=== PATIENT | female | born 1980 | race Caucasian/White ===

== ENCOUNTER 2018-12-30 15:07 | Emergency (ER) | payer MEDICAID ==
[~2018-12-30] VITALS: Ht 170.2 cm; Wt 80.0 kg
--- NOTE | 2018-12-30 15:14 | NUR ---
Pt ambulates to room from lobby with steady gait and balance. NADN. No obvious defecits observed.
[2018-12-30] MEDS ORDERED: ALBUTEROL/IPRATROPIUM 2.5MG/0.5MG, 3 ML ONE ×2 (15:24→15:27)
--- NOTE | 2018-12-30 15:24 | NUR ---
FIRST CONTACT WITH PT. Pt c/o headache, cough, right ear pain, sore throat. Pt states she was seen by PCP and treated for otits media and penumonia. Pt states, "I was recently diagnosed with epilepsy, then two weeks ago I was diagnosed with sinus infection." NADN. Bedside rail up on left side of [facility]. Pt has occasional weak cough, skin is pink, warm, dry, and pt is AOX4. Call light within reach. Pt connected to NIBP, continous pulse ox, and cardiac cath technologist.
[2018-12-30] MEDS ORDERED: ALBUTEROL/IPRATROPIUM 2.5MG/0.5MG, 3 ML NPPB ONE (15:30)
[2018-12-30] MEDS ORDERED: KETOROLAC 30 MG/1 ML ONE (15:40)
--- NOTE | 2018-12-30 15:46 | NUR ---
Pt ambulates with steady gait and balance to x-ray. NADN. No obvious defecits observed.
[2018-12-30 15:54] LABS: BASOPHILS # (AUTO) 0.07 x10^3/uL (0-0.1); BASOPHILS % (AUTO) 1 % (0-1); EOSINOPHILS # (AUTO) 0.26 x10^3/uL (0-0.4); EOSINOPHILS % (AUTO) 4 % (1-7); LYMPHOCYTES % (AUTO) 32 % (22-44); MD NO; MEAN CORPUSCULAR HEMOGLOBIN 30.9 pg (27.0-34.8); MEAN CORPUSCULAR HGB CONC 34.7 g/dL (32.4-35.8); MEAN CORPUSCULAR VOLUME 88.9 fL (80-100); MEAN PLATELET VOLUME 8.4 fL (7.4-10.4); MONOCYTES % (AUTO) 9 % (2-9); NEUTROPHILS # (AUTO) 3.38 x10^3/uL (1.8-6.8); NEUTROPHILS % (AUTO) 54 % (42-75); PLATELET COUNT 254 x10^3/uL (130-400); RED BLOOD COUNT 4.94 x10^6/uL (3.82-5.3); RED CELL DISTRIBUTION WIDTH 12.7 % (9.6-15.2)
[2018-12-30] MEDS ORDERED: KETOROLAC 30 MG/1 ML IM ONE (16:00)
[2018-12-30 16:04] LABS: ALANINE AMINOTRANSFERASE 57 U/L (12-78); ALBUMIN 3.6 g/dL (3.4-5.0); ANION GAP 8 mmol/L (5-15); CALCIUM 8.7 mg/dL (8.5-10.1); CHLORIDE 109 mmol/L (98-107); CREATININE 0.76 mg/dL (0.55-1.02)
[2018-12-30 16:06] LABS: ALKALINE PHOSPHATASE 131 U/L (45-117); TOTAL PROTEIN 7.4 g/dL (6.4-8.2)
[2018-12-30 16:20] LABS: BILIRUBIN,TOTAL 0.2 mg/dL (0.2-1.0)
== END 2018-12-30 17:16 | disposition home or self-care (01) ==
LOC: ED 16:01 → MERGE 16:01 → ED 17:16
DX: J45.909 Unspecified asthma, uncomplicated (principal); G40.909 Epilepsy, unspecified, not intractable, without status epilepticus; F17.200 Nicotine dependence, unspecified, uncomplicated; Z98.890 Other specified postprocedural states
CPT/HCPCS: 36415; 71046; 80053; 83605; 84145; 85025; 87070; 87205; 94640; 96372; 99284; J1885